=== PATIENT | male | born 1960 | race African-American/Black ===

== ENCOUNTER 2020-05-04 18:28 | Emergency (ER) | payer OTHER ==
[~2020-05-04] VITALS: Ht 162.6 cm; Wt 72.7 kg
[2020-05-04 18:44] VITALS: Ht 162.6 cm; Wt 72.7 kg
[2020-05-04] MEDS ORDERED: VITAMIN D1000 UNIT PO (18:45)
[2020-05-04] MEDS ORDERED: NORVASC2.5 MG PO (18:45)
[2020-05-04] MEDS ORDERED: PREZISTA75 MG PO (18:47)
[2020-05-04] MEDS ORDERED: GENVOYA (18:47)
[2020-05-04] MEDS ORDERED: PRAVACHOL20 MG PO (18:48)
[2020-05-04] MEDS ORDERED: GAS-X125 M1 PO (18:48)
[2020-05-04] MEDS ORDERED: OMEPRAZOLE40 MG PO (18:49)
[2020-05-04 20:40] VITALS: BP 147/79
== END 2020-05-04 20:40 | disposition home or self-care (01) ==
LOC: D.ER 18:28
DX: S61.512A Laceration without foreign body of left wrist, initial encounter (principal); W45.8XXA Other foreign body or object entering through skin, initial encounter; Y93.9 Activity, unspecified; Y92.9 Unspecified place or not applicable; I10 Essential (primary) hypertension; K21.9 Gastro-esophageal reflux disease without esophagitis; Z72.0 Tobacco use